=== PATIENT | female | born 1995 | race Hispanic/Latino ===

== ENCOUNTER 2017-08-16 02:01 | Emergency (ER) | payer SELFPAY ==
--- NOTE | 2017-08-16 02:35 | ED PDOC ---
HPI: Psych/Substance Abuse Time Seen by Provider: 08/16/17 02:04 Chief Complaint (Nursing): Alcohol Ingestion Chief Complaint (Provider): Alcohol Intoxication ED Caveat: Intoxicated History Per: Patient History/Exam Limitations: intoxication Onset/Duration Of Symptoms: Unknown Current Symptoms Are (Timing): Still Present Additional History Per: EMS Additional Complaint(s): Janet is a 21 y/o female who was brought to the ED via EMS for alcohol intoxication. Patient was found knocking on people's doors. She admits to drinking but is uncooperative. Unable to provide further history at this time. PMD: None Provided Past Medical History Reviewed: Historical Data, Nursing Documentation, Vital Signs Vital Signs: Last Vital Signs Temp 98.0 F 08/16/17 02:07 Pulse 122 H 08/16/17 02:07 Resp 18 08/16/17 02:07 BP 125/75 08/16/17 02:07 Pulse Ox 98 08/16/17 02:07 - Family History Family History: States: Unknown Family Hx - Allergies Allergies/Adverse Reactions: Allergies Allergy/AdvReac Type Severity Reaction Status Date / Time No Known Allergies Allergy Verified 08/16/17 02:16 Review of Systems Review Of Systems: ROS cannot be obtained secondary to pt's inabilty to answer questions. Physical Exam - Reviewed Nursing Documentation Reviewed: Yes Vital Signs Reviewed: Yes - Physical Exam Appears: Positive for: Non-toxic, No Acute Distress. Negative for: Well ( intoxicated) Head Exam: Positive for: ATRAUMATIC, NORMAL INSPECTION, NORMOCEPHALIC Skin: Positive for: Normal Color, Warm, Dry Eye Exam: Positive for: EOMI, Normal appearance, PERRL ENT: Positive for: Normal ENT Inspection Neck: Positive for: Normal, Painless ROM, Supple Cardiovascular/Chest: Positive for: Regular Rate, Rhythm. Negative for: Murmur Respiratory: Positive for: Normal Breath Sounds. Negative for: Respiratory Distress Gastrointestinal/Abdominal: Positive for: Normal Exam, Bowel Sounds, Soft. Negative for: Tenderness Back: Positive for: Normal Inspection Extremity: Positive for: Normal ROM. Negative for: Pedal Edema, Deformity - ECG O2 Sat by Pulse Oximetry: 98 (RA) Pulse Ox Interpretation: Normal Medical Decision Making Medical Decision Making: Time: 2:29 Initial Impression: Alcohol Intoxication Patient is uncooperative, combative, verbal de-escalation attempted without success, patient attempting to leave room multiple times. Required chemical and physical restraints for her safety and the safety of the staff. Initial Plan: --Alcohol Serum --Ativan --Haldol --Accucheck --Restraints [address] Ochoa pending sobriety. Scribe Attestation: Documented by Bob Hall, acting as a scribe for Dr. Brenton Ortega MD Provider Scribe Attestation: All medical record entries made by the Scribe were at my direction and personally dictated by me. I have reviewed the chart and agree that the record accurately reflects my personal performance of the history, physical exam, medical decision making, and the department course for this patient. I have also personally directed, reviewed, and agree with the discharge instructions and disposition. Disposition - Clinical Impression Clinical Impression: Alcohol abuse - Patient ED Disposition Is Patient to be Admitted: Transfer of Care - Disposition Disposition: Transfer of Care Disposition Time: 07:00 Condition: STABLE Forms: [facility] (Ind[place]ian) Patient Signed Over To: Keenan Ochoa III Handoff Comments: pending sobriety
--- NOTE | 2017-08-16 07:25 | ED PDOC ---
- Laboratory Results Result Diagrams: 08/16/17 13:20 08/16/17 13:20 - ECG O2 Sat by Pulse Oximetry: 98 (RA) Pulse Ox Interpretation: Normal Medical Decision Making Medical Decision Making: Receiving sign out: Patient signed out to me by Dr. Ortega at 0700 pending clinical sobriety. patient had episode of mild tachycardia and hypotension, labs were obtained and IVF administered with resolution of symptoms. Pt was asymptomatic with evidence of clinical orthostasis on discharge. Scribe Attestation: Documented by Iveth Browne acting as a scribe for Keenan Ochoa DO. Provider Attestation: All medical record entries made by the Scribe were at my direction and personally dictated by me. I have reviewed the chart and agree that the record accurately reflects my personal performance of the history, physical exam, medical decision making, and the department course for this patient. I have also personally directed, reviewed, and agree with the discharge instructions and disposition. Disposition Counseled Patient/Family Regarding: Studies Performed, Diagnosis, Need For Followup - Clinical Impression Clinical Impression: Alcohol abuse, Dehydration - POA Present On Arrival: None - Disposition Referrals: Alcoholics Anonymous [Outside] [facility] [Outside] Disposition: Routine/Home Disposition Time: 13:00 Condition: STABLE Instructions: Dehydration (ED), At-Risk Alcohol Use (ED) Forms: [facility] (British) Progress Note - Review of Symptoms Events since last encounter: Time: 1115 Patient somnolent but arousable. Time: 1500 Patient with persistent tachycardia and without symptomatic orthostasis. Patient wishing to go home. Patient awake, alert and oriented with steady gait. Stable for discharge home.
[2017-08-16] MEDS ORDERED: Sodium Chloride 0.9% 1,000 ML IV STA (11:58)
[2017-08-16 13:25] LABS: BASO % 0.4 % (0.0-2.0); EOS # 0.1 K/uL (0.0-0.7); EOS % 1.4 % (0.0-4.0); HEMOGLOBIN 13.3 g/dL (12.0-16.0); LYMPH # 1.7 K/uL (1.0-4.3); LYMPH % 24.2 % (20.0-40.0); MEAN CELL VOLUME 91.1 fl (81.0-99.0); MEAN CORPUSCULAR HEMOGLOBIN 31.5 pg (27.0-31.0); MEAN CORPUSCULAR HGB CONC 34.6 g/dL (33.0-37.0); MEAN PLATELET VOLUME 7.7 fl (7.2-11.7); MONO # 0.4 K/uL (0.0-0.8); MONO % 6.1 % (0.0-10.0); NEUT # 4.8 K/uL (1.8-7.0); NEUT % 67.9 % (50.0-75.0); NRBC % 0.1 % (0.0-0.0); RBC 4.23 Mil/uL (3.80-5.20); RED CELL DISTRIBUTION WIDTH 12.9 % (11.5-14.5)
[2017-08-16 13:36] LABS: ALB/GLOB RATIO 1.4 (1.0-2.1); ALBUMIN 4.7 g/dL (3.5-5.0); ALT/SGPT 28 U/L (9-52); AST/SGOT 22 U/L (14-36); BLOOD UREA NITROGEN 9 mg/dl (7-17); GFR AFRICAN-AMERICAN > 60; GFR NON-AFRICAN AMERICAN > 60
[2017-08-16 15:47] VITALS: BP 123/80; PULSE 98; RESP 18; TEMP 98.2
[2017-08-17 09:02] VITALS: O2SAT 98
== END 2017-08-16 16:01 | disposition home or self-care (01) ==
LOC: H.ER 02:01
DX: F10.129 Alcohol abuse with intoxication, unspecified (principal); R00.0 Tachycardia, unspecified; E86.0 Dehydration
CPT/HCPCS: 80053; 82948; 84703; 85025; 96372; 99285; G0480; J1630; J2060; J7040